=== PATIENT | female | born 1965 | race Caucasian/White ===

== ENCOUNTER 2023-04-27 09:00 | Outpatient (RCR) | payer OTHER, SELFPAY | END 2023-07-06 10:11 | disposition home or self-care (01) | LOC: HO.OT 09:00 | PROVIDERS: PCP Internal Medicine; Visit Provider Internal Medicine | DX: S06.0XAD Concussion with loss of consciousness status unknown, subsequent encounter (principal) | CPT/HCPCS: 97110; 97112; 97165; 97530 ==